=== PATIENT | male | born 1960 | race Caucasian/White ===

== ENCOUNTER → 2020-06-30 14:39 | Outpatient (REF) | payer BC, SELFPAY | LOC: ANHLAB 14:39 | PROVIDERS: PCP Family Medicine Adolescent Medicine; Visit Provider Nurse Practitioner | DX: D23.0 Other benign neoplasm of skin of lip (principal) | CPT/HCPCS: 88305 ==

== ENCOUNTER 2022-09-08 07:00 | Outpatient (NON) | payer OTHER, SELFPAY | END 2022-09-08 07:01 | disposition home or self-care (01) | PROVIDERS: PCP Family Medicine Adolescent Medicine; Visit Provider Nurse Practitioner | DX: C44.42 Squamous cell carcinoma of skin of scalp and neck (principal) | CPT/HCPCS: 88305; 88342 ==

== ENCOUNTER 2022-10-10 11:51 | Outpatient (NON) | payer OTHER, SELFPAY | END 2022-10-10 11:52 | disposition home or self-care (01) | LOC: ANHLAB 11:51 | PROVIDERS: PCP Family Medicine Adolescent Medicine; Visit Provider Nurse Practitioner | DX: C44.92 Squamous cell carcinoma of skin, unspecified (principal) | CPT/HCPCS: 88305; 88331 ==

== ENCOUNTER 2023-04-25 08:00 | Outpatient (NON) | payer OTHER, SELFPAY | END 2023-04-25 08:01 | disposition home or self-care (01) | LOC: ANHLAB 04-26 12:38 | PROVIDERS: PCP Family Medicine Adolescent Medicine; Visit Provider Nurse Practitioner | DX: L81.4 Other melanin hyperpigmentation (principal) | CPT/HCPCS: 88305 ==

== ENCOUNTER → 2023-11-14 15:02 | Outpatient (CLI) | payer OTHER, SELFPAY ==
--- NOTE | ~2023-11-14 | CT_ITS ---
CT Scan of the Chest without Contrast: Clinical Indication: Lung cancer screening, personal history of nicotine dependence Technique: Contiguous sections were acquired throughout the chest without intravenous contrast. Dose reduction technique was used on this scan by utilizing automated exposure control and iterative recon struction technique. The dose-length product (DLP) was 108.84 mGy-cm. Findings: There is no evidence of any significant mediastinal, hilar or axillary lymphadenopathy. The mediastin al soft tissues appear normal. There is no evidence of pleural or pericardial effusion. Paraseptal emphysema noted, particularly upper lobes. Several scattered calcified granulomas are note d. Images through the upper abdomen reveal no abnormalities. Impression: Lung RADS 2: Benign appearance. [address] advised. Reviewed, dictated and finalized at location . [employer] Impression: Lung RADS 2: Benign appearance. [address] advised.
== END ==
PROVIDERS: PCP Nurse Practitioner Family; Visit Provider Nurse Practitioner Family
DX: Z12.2 Encounter for screening for malignant neoplasm of respiratory organs (principal); Z87.891 Personal history of nicotine dependence
CPT/HCPCS: 71271

== ENCOUNTER 2024-01-29 05:51 | Day surgery (SDC) | payer OTHER, SELFPAY ==
[2023-11-14 11:35] VITALS: BMI 25.9
--- NOTE | 2024-01-23 12:41 | PM.HPGS ---
History of Present Illness History of Present Illness Consent: Risks, benefits, and alternatives have been discussed and questions answered. Patient agrees to proceed with procedure. Chief complaint: Neoplasm Screening Narrative: Alexy Jane is a 63 year old male who is referred for colon cancer screening. he did have a colonoscopy a few years ago but was told that his colon was long and they could not reach she beginning. One polyp was removed at that time. Review of Systems Review of Systems: All systems reviewed & are unremarkable except as noted in HPI and below PMFSH Family History Family History Father Heart disease Mother Brain cancer Social History Social History Smoking packs per day: 2 Smoking cigarettes per day: 40.0 Years smoked: 45 Smoking pack-years: 90.00 Smoking status: Current every day smoker Tobacco type: cigarettes Second hand tobacco smoke exposure: Yes Alcohol intake: current Alcohol use details: occasional Substance use: never Substance use type: does not use Living arrangements: with family Occupation/Education: occupation Gender identity (if verbalized by the patient): Male Sexual Orientation (if Verbalized by the Patient): Straight or Heterosexual Spiritual care concerns: No Agree to blood products: Yes Meds Home Medications and Allergies Home Medications Medication Instructions Recorded Confirmed Type albuterol sulfate 90 mcg/actuation 1 inh inhalation Q4H PRN shortness 11/07/23 01/29/24 Rx aerosol inhaler (Ventolin HFA) of breath or wheezing #6.7 grams atorvastatin 20 mg tablet 20 mg PO DAILY #90 tabs 11/10/23 01/29/24 Rx Allergies Allergy/AdvReac Type Severity Reaction Status Date / Time No Known Allergies Allergy Unknown Verified 01/29/24 06:19 Exam Resp: Auscultation: clear to auscultation bilaterally Cardio: Rate: regular rate Rhythm: regular rhythm GI: GI Palp: Yes Soft to palpation and No Tenderness to palpation present (GI) Assessment and Plan Assessment and plan (1) Colon cancer screening: Code(s): Z12.11 - Encounter for screening for malignant neoplasm of colon Status: Acute Assessment and Plan: Colonoscopy with possible biopsy or polypectomy or cautery or injection of substances.
[2024-01-29 06:24] VITALS: BP 119/69; PULSE 66; RESP 14; TEMP 36.8; O2SAT 98
--- NOTE | 2024-01-29 06:33 | P.PNAN_ITS ---
Anes - Initial Pre Proc Eval Procedure: Operation Date: 01/29/24 07:30 Proposed Procedures p Colonoscopy - Angel Jesus MD Date/Time: 01/29/24 06:33 Surgeon: Angel Jesus MD Pre Op Diagnosis: Neoplasm Screening Patient Data Age: 63 Gender: M Height: 1.78 m Weight: 76.65 kg Last Vital Signs Temp 36.8 C 01/29/24 06:24 Pulse 66 01/29/24 06:24 Resp 14 01/29/24 06:24 BP 119/69 01/29/24 06:24 Pulse Ox 98 01/29/24 06:24 O2 Del Method Room Air 01/29/24 06:24 Allergies Allergy/AdvReac Type Severity Reaction Status Date / Time No Known Allergies Allergy Unknown Verified 01/29/24 06:19 Home Medications Medication Instructions Recorded Confirmed Type albuterol sulfate 90 mcg/actuation 1 inh inhalation Q4H PRN shortness 11/07/23 01/29/24 Rx aerosol inhaler (Ventolin HFA) of breath or wheezing #6.7 grams atorvastatin 20 mg tablet 20 mg PO DAILY #90 tabs 11/10/23 01/29/24 Rx Patient hx anesthesia problems: none Family hx anesthesia problems: none Results Review: All pre-operative results and documents have been reviewed as part of the pre- operative evaluation. [facility] Family History Family History Father Heart disease Mother Brain cancer Social History Social History Smoking packs per day: 2 Smoking cigarettes per day: 40.0 Years smoked: 45 Smoking pack-years: 90.00 Smoking status: Current every day smoker Tobacco type: cigarettes Second hand tobacco smoke exposure: Yes Alcohol intake: current Alcohol use details: occasional Substance use: never Substance use type: does not use Living arrangements: with family Occupation/Education: occupation Gender identity (if verbalized by the patient): Male Sexual Orientation (if Verbalized by the Patient): Straight or Heterosexual Spiritual care concerns: No Agree to blood products: Yes Anes - Eval Final PreProcedure Day of Procedure 01/29/24 06:33 Patient weight: normal Heart: regular rate and rhythm Lungs: clear to auscultation and normal air movement Airway: Mallampati scale class II Neurological: alert and oriented Last oral intake: >/= 8 hours ASA classification: III Emergent: no Anesthetic plan: proceed Anesthesia type and monitoring: general GIVS and standard monitoring Results Review: All pre-operative results and documents have been reviewed as part of the pre- operative evaluation. Informed Consent: The patient's anesthetic plan and its attendant risks and benefits were discussed with the patient/family/POA. Questions were solicited and answers provided to the satisfaction of the patient/family/POA.
[2024-01-29] MEDS: LACTATED RINGERS 1,000 ML 150 ML IV CONT (06:38)
[2024-01-29 07:46] VITALS: BP 96/72; PULSE 66; RESP 14; O2SAT 98
[2024-01-29 07:56] VITALS: BP 114/67; PULSE 66; RESP 14; O2SAT 98
[2024-01-29 08:06] VITALS: BP 116/68; PULSE 66; RESP 16; O2SAT 98
--- NOTE | 2024-01-29 11:56 | WPDANESPN ---
Anes - Prog Note Post-Op Date/Time: 01/29/24 11:56 Cardiovascular status: normal Respiratory status: normal Airway patency: baseline Mental status: baseline Post-Op hydration status: normal Vital Signs: Last Vital Signs Temp 36.8 C 01/29/24 06:24 Pulse 66 01/29/24 08:06 Resp 16 01/29/24 08:06 BP 116/68 01/29/24 08:06 Pulse Ox 98 01/29/24 08:06 O2 Del Method Room Air 01/29/24 08:06 Pain Score (VAS): 0 I/O: Intake & Output 01/28/24 01/29/24 01/29/24 23:59 07:59 15:59 Intake Total 725 Balance 725 Post-procedural complaints: none Patient Feedback: Patient satisfied with anesthetic care. Other Findings: Patient vital signs back to baseline. Patient denies nausea and vomiting. Patient's pain under control. Patient OK for discharge.
== END 2024-01-29 08:15 | disposition home or self-care (01) ==
PROVIDERS: PCP Family Medicine Adolescent Medicine; Visit Provider Internal Medicine Gastroenterology
PROC: 0DJD8ZZ Inspection of Lower Intestinal Tract, Via Natural or Artificial Opening Endoscopic (ICD-10-PCS; CPT 45378; principal; 2024-01-29 07:30)
DX: Z12.11 Encounter for screening for malignant neoplasm of colon (principal); K57.30 Diverticulosis of large intestine without perforation or abscess without bleeding; K64.8 Other hemorrhoids
CPT/HCPCS: 45378

== ENCOUNTER 2025-01-22 09:54 | Outpatient (CLI) | payer OTHER, SELFPAY ==
--- NOTE | 2025-01-22 16:31 | P.PCNPFT_ITS ---
PFT Procedure Performed PFT Procedure Performed Spirometry with Pre/Post Bronchodilator Plethysmography (Lung Vol) Diffusing Cap (DLCO) Flow Vol Loop PFT Interpretation This is a pulmonary function test with pre and post-bronchodilator spirometry, plethysmography and diffusing capacity. The test was performed and results interpreted in accordance with the 2019 and 2005 ATS/ERS Task Force guidelines respectively using the Global Lung Function Initiative-2012 reference equations. Patient demonstrated good effort and cooperation. Reproducibility criteria were met. The quality of the pre bronchodilator spirometry maneuver was Grade A and post bronchodilator spirometry maneuver was Grade A. Findings: Spirometry: There is decreased maximal expiratory airflow at all lung volumes with concave expiratory flow tracing. The contour the inspiratory flow tracing is normal. The pre bronchodilator FVC is 3.32 L, 72% predicted. The pre bronchodilator FEV1 is 1.79 L, 51% predicted. The pre bronchodilator FEV1: FVC ratio is 54%. The post bronchodilator FVC is 3.82 L, representing a 15% increase. The post bronchodilator FEV1 is 1.72 L, representing a 4% decrease. The post bronchodilator FEV1: FVC ratio is 45%. Plethysmography: The total lung capacity is 5.29 L, 74% predicted. The functional residual capacity is 3.48 L, 92% predicted. The residual volume is 1.97 L, 83% predicted. Diffusing capacity: The diffusing capacity unadjusted for hemoglobin and carboxyhemoglobin is 13.6, 49% predicted. The diffusing capacity adjusted for alveolar volume is 3.18, 78% predicted. Impression: There is a moderately severe obstructive abnormality. There is significant improvement after inhaling a single dose of albuterol. The increase in residual volume to total lung volume ratio is consistent with hyperinflation from an obstructive abnormality. The diffusing capacity unadjusted for he moglobin and carboxyhemoglobin is moderately decreased and normalizes when adjusted for alveolar volume. There are no prior studies for comparison
== END 2025-01-22 09:55 | disposition home or self-care (01) ==
LOC: ANHPFT 09:57
PROVIDERS: PCP Family Medicine Adolescent Medicine; Visit Provider Nurse Practitioner Family
DX: R94.2 Abnormal results of pulmonary function studies (principal); R06.09 Other forms of dyspnea; F17.210 Nicotine dependence, cigarettes, uncomplicated
CPT/HCPCS: 94060; 94726; 94729